=== PATIENT | female | born 1960 | race African-American/Black ===

== ENCOUNTER 2018-06-09 22:17 | Emergency (ER) | payer OTHER ==
[~2018-06-09] VITALS: Ht 167.6 cm; Wt 108.9 kg
[2018-06-09 22:31] VITALS: Ht 167.6 cm; Wt 108.9 kg
[2018-06-09 23:11] LABS: BASOPHIL % 1.8 % (0-2); PLATELET COUNT 199 x10^3mcL (130-400); RED CELL DISTRIBUTION WIDTH 14.1 % (11.5-14.5)
[2018-06-09 23:27] LABS: ALKALINE PHOSPHATASE 104 U/L (46-116); ALT/SGPT 13 U/L (14-59); AST/SGOT 16 U/L (15-37); BILIRUBIN TOTAL 0.2 mg/dL (0.20-1.00); CALCIUM 8.2 mg/dL (8.5-10.1); CARBON DIOXIDE 27.9 mmol/L (21-32); CHLORIDE SERUM 105 mmol/L (98-107); CREATININE SERUM 0.9 mg/dL (0.6-1.0); GFR1 > 60 mL/min; GLUCOSE SERUM 132 mg/dL (74-106); POTASSIUM SERUM 3.2 mmol/L (3.5-5.1); SODIUM SERUM 143 mmol/L (136-145); TOTAL PROTEIN, SERUM 6.6 g/dL (6.4-8.2)
[2018-06-09 23:30] LABS: ALBUMIN 3.2 g/dL (3.4-5.0)
[2018-06-10 03:42] LABS: AMPHETAMINE QUAL UR NONE DETECTED (See below)
[2018-06-10 05:19] VITALS: BP 125/57
== END 2018-06-10 05:41 | disposition short-term general hospital (02) ==
LOC: ED 22:17
PROVIDERS: Emergency Medicine
DX: R41.82 Altered mental status, unspecified (principal); R55 Syncope and collapse; M54.2 Cervicalgia; I10 Essential (primary) hypertension
CPT/HCPCS: 83880; G0480; J7030; Q0092